=== PATIENT | male | born 1965 | race Caucasian/White ===

== ENCOUNTER → 2019-10-03 | Outpatient (CLI) | payer MEDICAID ==
[2019-10-03 08:53] LABS: HEMOGLOBIN A1C 5.9 % (< 5.7)
== END ==
LOC: LB.CLINIC 08:04
PROVIDERS: ATTEND Family Medicine
DX: F31.9 Bipolar disorder, unspecified (principal); I10 Essential (primary) hypertension; E78.5 Hyperlipidemia, unspecified; F42.9 Obsessive-compulsive disorder, unspecified; R73.03 Prediabetes
CPT/HCPCS: 36415; 80053; 80061; 80178; 83036; 85025

== ENCOUNTER 2025-02-03 17:11 | Emergency (ER) | payer MEDICAID ==
[2025-02-03 18:20] LABS: BASOPHILS ABSOLUTE AUTO 0.02 K/uL (0.02-0.10); BASOPHILS PERCENT AUTO 0.2 % (0.0-0.5); EOSINOPHILS ABSOLUTE AUTO 0.39 K/uL (0.04-0.40); EOSINOPHILS PERCENT AUTO 3.9 % (1.0-5.0); HEMOGLOBIN 12.9 g/dL (13.0-18.0); LYMPHOCYTES ABSOLUTE AUTO 2.27 K/uL (1.50-4.00); MEAN CORPUSCULAR HEMOGLOBIN 32.5 pg (27.0-32.0); MEAN CORPUSCULAR HGB CONC 34.9 g/dL (31.0-35.0); MEAN CORPUSCULAR VOLUME 93 fL (76-96); MEAN PLATELET VOLUME 9.2 fL (6.0-10.0); MONOCYTES ABSOLUTE AUTO 0.65 K/uL (0.20-0.80); MONOCYTES PERCENT AUTO 6.6 % (3.0-10.0); NEUTROPHILS ABSOLUTE AUTO 6.55 K/uL (2.00-7.50); NEUTROPHILS PERCENT AUTO 66.3 % (45.0-70.0); PLATELET COUNT,PLT 175 K/uL (150-400); RED BLOOD CELL COUNT 3.97 M/uL (4.50-6.50); RED CELL DISTRIBUTION WIDTH 13.4 % (11.0-16.0); WHITE BLOOD CELL COUNT,WBC 9.9 K/uL (4.0-11.0)
[2025-02-03 18:47] LABS: MAGNESIUM 1.7 mg/dL (1.8-2.4)
[2025-02-03 18:50] LABS: C-REACTIVE PROTEIN < 5.0 mg/L (<5.0)
[2025-02-03 18:54] LABS: A/G RATIO 0.8 (0.8-2.0); ALBUMIN 2.8 g/dL (3.4-5.0); ANION GAP 6.3 mmol/L (5.0-15.0); BILIRUBIN TOTAL 0.5 mg/dL (0.0-1.0); BUN/CREATININE RATIO 12.4 (6-25); CALCIUM 9.2 mg/dL (8.5-10.1); CARBON DIOXIDE,CO2 29.5 mmol/L (21.0-32.0); CREATININE 0.97 mg/dL (0.70-1.30); EST CRCL DRUG DOSING (CG) 84.02 mL/min; POTASSIUM,K 3.8 mmol/L (3.5-5.1); PROTEIN TOTAL,TP 6.5 g/dL (6.4-8.2); TSH ULTRASENSITIVE 3.318 uIU/mL (0.358-3.740)
[2025-02-03 18:54] LABS: INFLUENZA A NAA NEGATIVE (NEGATIVE); INFLUENZA B NAA NEGATIVE (NEGATIVE)
[2025-02-03 18:56] LABS: CORONAVIRUS COVID-19 NAA POSITIVE (NEGATIVE)
[2025-02-03] MEDS ORDERED: Sodium Chloride 0.9% 1,000 ML IV ONE (18:56)
[2025-02-03 19:13] LABS: PROTHROMBIN TIME 10.4 sec (9.0-11.5); PTT,PARTIAL THROMBOPLSTIN TIME 24.1 SECONDS (24.4-33.2)
[2025-02-03 19:40] VITALS: BP 134/77; PULSE 59
[2025-02-05 17:58] LABS: LITHIUM, SERUM OR PLASMA 1.4 mmol/L (0.5-1.2)
== END 2025-02-03 19:15 | disposition home or self-care (01) ==
LOC: LB.ED 17:11
DX: U07.1 COVID-19 (principal); Z88.8 Allergy status to other drugs, medicaments and biological substances; Z79.899 Other long term (current) drug therapy
CPT/HCPCS: 0240U; 36415; 71045; 80053; 80178; 83605; 83735; 84443; 84484; 85025; 85610; 85730; 86140; 93005; 99283; 99284